=== PATIENT | female | born 2000 | race Caucasian/White ===

== ENCOUNTER 2020-01-18 22:12 | Emergency (ER) | payer OTHER ==
[2020-01-19] MEDS ORDERED: Ibuprofen 600 MG Tab PO ONE (00:22)
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
--- NOTE | 2020-01-19 06:31 | CR ---
Chest: 2 views of the chest were obtained. Comparison: No prior chest imaging is available. Heart size and mediastinum are normal. Lungs are clear with no acute parenchymal change. Bony structures appear within normal limits for the patient's age. Impression: 1. Nothing acute is seen on 2 view chest x-ray. Diagnostic code #1 This report was dictated in MDT
--- NOTE | 2020-01-21 15:59 | CR ---
Left knee: AP, lateral and sunrise patellar views left knee were obtained. Comparison: No previous knee study. Medial and lateral joint compartments are maintained in height. No joint effusion is seen. Patellofemoral joint appears within normal limits. Impression: 1. Nothing acute is seen on 3 view left knee exam. Diagnostic code #1 Study was dictated in MDT
== END 2020-01-19 00:31 | disposition home or self-care (01) ==
LOC: JD.ED 22:12
DX: S20.212A Contusion of left front wall of thorax, initial encounter (principal); S80.02XA Contusion of left knee, initial encounter; V53.5XXA Driver of pick-up truck or van injured in collision with car, pick-up truck or van in traffic accident, initial encounter
CPT/HCPCS: 71046; 71046-26; 73562-26-LT; 73562-LT; 99282; 99284-25